=== PATIENT | male | born 1980 | race Two or more races ===

== ENCOUNTER 2016-08-13 23:20 | Emergency (ER) | payer BC ==
[~2016-08-13] VITALS: Ht 180.3 cm; Wt 77.3 kg
[~2016-08-13 23:20] MED LIST: CEPH-443 PO; IBUP-1542 PO; NPH10OT LEFT EAR
[2016-08-13 23:27] VITALS: Ht 180.3 cm; Wt 77.3 kg
[2016-08-13] MEDS ORDERED: NALOXONE 2 MG SYG IV ONE (23:30)
--- NOTE | 2016-08-14 03:59 | ERD ---
ER Documentation Chief Complaint Date/Time DATE: 08/14/16 TIME: 03:59 Chief Complaint FOUND BY RESCUE IN CAR WITH MULTIPLE CRACK PIPES HPI Is a 36-year-old male found by rescue with multiple drug paraphernalia in his car. Upon arrival he is lethargic but arousable. No evidence of trauma. No other current complaints. ROS All systems reviewed and are negative except as per history of present illness. Medications Home Meds Active Scripts Ibuprofen* (Motrin*) 600 Mg Tab, 600 MG PO Q6, #15 TAB Prov:WENDY JAMES MD 12/17/15 Neomycin/Polymyxin/Hydrocort* (Cortisporin* Otic) 10 Ml Susp, 4 DROP LEFT EAR QID for 7 Days, EA Prov:WENDY JAMES MD 12/17/15 Cephalexin* (Keflex*) 500 Mg Capsule, 500 MG PO QID for 10 Days, CAP Prov:WENDY JAMES MD 12/17/15 Allergies Allergies: Coded Allergies: No Known Allergy (Unverified , 12/17/15) PMhx/Soc Medical and Surgical Hx: Unable to obtain History of Surgery: No Anesthesia Reaction: No Hx Neurological Disorder: No Hx Respiratory Disorders: No Hx Cardiac Disorders: No Hx Psychiatric Problems: No Hx Miscellaneous Medical Probl: No (PT. DENIES MEDICAL AND SURGICAL HX.) Hx Alcohol Use: No Hx Substance Use: Yes (CRACK) Hx Tobacco Use: No Smoking Status: Never smoker Physical Exam Vitals Vital Signs Date Time Temp Pulse Resp B/P Pulse Ox O2 Delivery O2 Flow Rate FiO2 08/13/16 23:27 98.0 51 14 140/90 100 Physical Exam Const: [] Head: Atraumatic Eyes: Normal Conjunctiva ENT: Normal External Ears, Nose and Mouth. Neck: Full range of motion..~ No meningismus. Resp: Clear to auscultation bilaterally Cardio: Regular rate and rhythm, no murmurs Abd: Soft, non tender, non distended. Normal bowel sounds Skin: No petechiae or rashes Back: No midline or flank tenderness Ext: No cyanosis, or edema Neur: Awake and alert Psych: Normal Mood and Affect Results 24 hrs Current Medications Medications (Trade) Dose Ordered Sig/Mahad Route PRN Reason Start Time Stop Time Status Last Admin Dose Admin Naloxone HCl (Narcan) 2 mg ONCE ONCE IV 08/13/16 23:30 08/13/16 23:31 DC 08/13/16 23:34 Procedures/MDM Medical decision-making process: 36-year-old male with drug use. Advised to stop using illicit drugs. Follow-up with outpatient treatment center. Departure Diagnosis: Primary Impression: Drug abuse Condition: Stable BETTY GONZALEZ Aug 14, 2016 03:59
[2016-08-14 04:24] VITALS: BP 131/100; PULSE 72; RESP 18
== END 2016-08-14 04:31 | disposition home or self-care (01) ==
LOC: E/R 23:20
DX: F14.10 Cocaine abuse, uncomplicated (principal)
CPT/HCPCS: J2310 ×2; 96374